=== PATIENT | male | born 2000 | race Caucasian/White ===

== ENCOUNTER 2018-08-13 16:02 | Emergency (ER) | payer MEDICAID ==
--- NOTE | 2018-08-13 16:22 | EDPHY ---
H & P Time Seen by Provider: 08/13/18 16:21 HPI/ROS: Chief complaint. Chest pain HPI. 18-year-old male presents to the emergency department with chest pain that occurs at night 2 nights and 3 nights ago. He did not have it last night. It awakens him in the night with left anterior chest tightness and cramp. It last 2-3 seconds. It awakes him. No radiation of his discomfort. No symptoms during the day with exertion or school activities. No shortness of breath. He does however have right-sided chest pain with deep breathing for about 1 month. Denies fever or cough. No unusual leg pain or swelling. No recent travel. No similar symptoms previously ROS 10 systems were reviewed and negative with the exception of the elements mentioned in the history of present illness Past Medical/Surgical History: Healthy No family history of early coronary artery disease or thromboembolic disease Social History: Single, nonsmoker, no alcohol Physical Exam: General Appearance: Alert well-developed male mild distress. Vital signs are stable Eyes: Pupils equal and round no pallor or injection. ENT, Mouth: Mucous membranes are moist. Respiratory: There are no retractions, lungs are clear to auscultation. Cardiovascular: Regular rate and rhythm. Gastrointestinal: Abdomen is soft and nontender, no masses, bowel sounds normal. Neurological: Awake and alert, sensory and motor exams grossly normal. Skin: Warm and dry, no rashes. Musculoskeletal: Neck is supple nontender. Extremities symmetrical, full range of motion. Psychiatric: Patient is oriented X 3, there is no agitation. Constitutional: Initial Vital Signs Temperature (C) 36.6 C 08/13/18 16:05 Heart Rate 69 08/13/18 16:05 Respiratory Rate 18 08/13/18 16:05 Blood Pressure 114/75 08/13/18 16:05 O2 Sat (%) 98 08/13/18 16:05 O2 Delivery Mode Room Air Allergies/Adverse Reactions: No Known Allergies Allergy (Unverified 08/13/18 16:05) Home Medications: Medication Instructions Recorded NK [No Known Home Meds] 08/13/18 Medical Decision Making - Diagnostics EKG Interpretation: EKG interpreted by me shows normal sinus rhythm normal interval and axis. QRS is normal no significant ST elevation or depression. No arrhythmia. Rate 55 Imaging Results: Imaging Impressions Chest X-Ray 08/13/18 16:35 Impression: Normal. Chest x-ray interpreted by me is normal Procedures: IV normal saline, monitor ED Course/Re-evaluation: Re-evaluation 5:30 p.m. Patient is stable. Patient and I discussed imaging EKG and lab results. We discussed treatment plan including criteria for return importance of follow-up further. He expresses understanding and agreement Differential Diagnosis: I considered acute coronary syndrome, pneumonia, pulmonary embolus. Workup is normal. This may be musculoskeletal. - Data Points Laboratory Results: Laboratory Results 08/13/18 17:00 08/13/18 17:00 08/13/18 08/13/18 08/13/18 17:02 17:00 17:00 WBC RBC Hgb Hct MCV MCH MCHC RDW Plt Count MPV Neut % (Auto) Lymph % (Auto) [place] % (Auto) Eos % (Auto) Baso % (Auto) Nucleat RBC Rel Count Absolute Neuts (auto) Absolute Lymphs (auto) Absolute Monos (auto) Absolute Eos (auto) Absolute Basos (auto) Absolute Nucleated RBC Immature Gran % Immature Gran # D-Dimer 0.38 ug/mLFEU ug/mLFEU (0.00-0.50) Sodium 140 mEq/L mEq/L (135-145) Potassium 4.2 mEq/L mEq/L (3.3-5.0) Chloride 102 mEq/L mEq/L (97-110) Carbon Dioxide 26 mEq/l mEq/l (22-31) Anion Gap 12 mEq/L mEq/L (6-14) BUN 13 mg/dL mg/dL (7-23) Creatinine 0.8 mg/dL mg/dL (0.7-1.3) Estimated GFR > 60 Glucose 90 mg/dL mg/dL (70-100) Calcium 10.1 mg/dL mg/dL (8.5-10.4) POC Troponin I 0.00 ng/mL ng/mL (0.00-0.08) 08/13/18 17:00 WBC 5.78 10^3/uL 10^3/uL (3.80-9.50) RBC 5.71 10^6/uL 10^6/uL (4.40-6.38) Hgb 16.7 g/dL g/dL (13.7-17.5) Hct 49.6 % % (40.0-51.0) MCV 86.9 fL fL (81.5-99.8) MCH 29.2 pg pg (27.9-34.1) MCHC 33.7 g/dL g/dL (32.4-36.7) RDW 12.7 % % (11.5-15.2) Plt Count 288 10^3/uL 10^3/uL (150-400) MPV 10.1 fL fL (8.7-11.7) Neut % (Auto) 58.1 % % (39.3-74.2) Lymph % (Auto) 29.4 % % (15.0-45.0) [place] % (Auto) 7.8 % % (4.5-13.0) Eos % (Auto) 3.5 % % (0.6-7.6) Baso % (Auto) 1.0 % % (0.3-1.7) Nucleat RBC Rel Count 0.0 % % (0.0-0.2) Absolute Neuts (auto) 3.36 10^3/uL 10^3/uL (1.70-6.50) Absolute Lymphs (auto) 1.70 10^3/uL 10^3/uL (1.00-3.00) Absolute Monos (auto) 0.45 10^3/uL 10^3/uL (0.30-0.80) Absolute Eos (auto) 0.20 10^3/uL 10^3/uL (0.03-0.40) Absolute Basos (auto) 0.06 10^3/uL 10^3/uL (0.02-0.10) Absolute Nucleated RBC 0.00 10^3/uL 10^3/uL (0-0.01) Immature Gran % 0.2 % % (0.0-1.1) Immature Gran # 0.01 10^3/uL 10^3/uL (0.00-0.10) D-Dimer Sodium Potassium Chloride Carbon Dioxide Anion Gap BUN Creatinine Estimated GFR Glucose Calcium POC Troponin I Point of Care Test Results: Chemistry 08/13/18 17:02 POC Troponin I 0.00 ng/mL ng/mL (0.00-0.08) Departure - Departure Disposition: Home, Routine, Self-Care Clinical Impression: Chest pain Qualifiers: Chest pain type: unspecified Qualified Code(s): R07.9 - Chest pain, unspecified Condition: Good Instructions: Chest Pain (ED) Additional Instructions: Drink plenty of fluids and stay hydrated. Ibuprofen 600 mg every 6 hr for discomfort Return for worsening symptoms. Re-evaluation with Cardiology for further evaluation Referrals: NONE *PRIMARY CARE P,. [Primary Care Provider] - As per Instructions Noel Edmond MD [Medical Doctor] - 2-3 days, if not improved
[2018-08-13 17:11] LABS: PLATELET COUNT 288 10^3/uL (150-400)
[2018-08-13 18:12] VITALS: BP 101/58
--- NOTE | 2018-08-13 20:38 | CPEKG ---
Test Reason : OPEN Blood Pressure : / mmHG Vent. Rate : 055 BPM Atrial Rate : 056 BPM P-R Int : 156 ms QRS Dur : 097 ms QT Int : 423 ms P-R-T Axes : 059 041 047 degrees QTc Int : 405 ms Sinus rhythm Probable left ventricular hypertrophy Confirmed by Bao Tom ([id number]) on 08/13/2018 8:37:42 PM Referred By: Confirmed By:Bao Tom
== END 2018-08-13 18:12 | disposition home or self-care (01) ==
DX: R07.9 Chest pain, unspecified (principal)
CPT/HCPCS: 84484-PO